=== PATIENT | male | born 1970 | race Hispanic/Latino ===

== ENCOUNTER 2020-09-14 08:11 | Emergency (ER) | payer OTHER ==
[~2020-09-14] VITALS: Ht 177.8 cm; Wt 99.5 kg
[2020-09-14] MEDS ORDERED: TETANUS/DIPHTHERIA TOX ADULT 0.5 ML SYR IM STA (08:24)
[2020-09-14] MEDS ORDERED: LIDOCAINE HCL 2% LOCAL 20 ML VIAL INJ STA (08:24)
[2020-09-14] MEDS ORDERED: IBUPROFEN IB200 MG PO (08:27)
[2020-09-14] MEDS ORDERED: DOXYCYCLINE HY100 MG PO (08:27)
[2020-09-14] MEDS ORDERED: MUPIROCIN 2% OINT 22 GM TUBE TOP ONE (08:30)
[2020-09-14] MEDS ORDERED: LEVOTHYROXINE175 MC1 (08:37)
[2020-09-14] MEDS ORDERED: LEVOTHYROXINE100 MC1 PO (08:37)
[2020-09-14] MEDS ORDERED: DUPIXENT P300 MG/2 M (08:37)
[2020-09-14] MEDS ORDERED: LIDOCAINE HCL 1% LOCAL INJ 20 ML VIAL ONE (08:59)
[2020-09-14] MEDS ORDERED: BACITRACIN ZINC 0.9GM TP ONE (08:59)
[2020-09-14] MEDS ORDERED: TETANUS/DIPHTHERIA TOX ADULT 0.5 ML SYR ONE (09:00)
== END 2020-09-14 09:27 | disposition home or self-care (01) ==
LOC: FSED 08:19
DX: S61.011A Laceration without foreign body of right thumb without damage to nail, initial encounter (principal); S50.811A Abrasion of right forearm, initial encounter; W26.8XXA Contact with other sharp object(s), not elsewhere classified, initial encounter; Y99.0 Civilian activity done for income or pay
CPT/HCPCS: 12001; 90471; 90714; 96372; 99283; J2001